=== PATIENT | female | born 1950 | race Caucasian/White ===

== ENCOUNTER 2021-08-28 14:11 | Emergency (ER) | payer MEDICARE ==
[~2021-08-28] VITALS: Ht 167.6 cm; Wt 80.9 kg
[2021-08-28 14:24] VITALS: TEMP 98.3
[2021-08-28 15:04] LABS: BASO % 0.6 % (0.0-2.0); EOS # 0.3 K/mm3 (0.0-0.7); GRAN # 3.6 K/mm3 (1.4-6.5); GRAN % 56.1 % (42.2-75.2); HEMATOCRIT 38.9 % (37.0-47.0); HEMOGLOBIN 13.3 g/dl (12.5-16.0); LYMPH # 1.7 K/mm3 (1.2-3.4); LYMPH % 26.9 % (20.0-51.0); MEAN CELL VOLUME 91 fl (80.0-100.0); MEAN CORPUSCULAR HEMOGLOBIN 31 pg (27-31); MEAN CORPUSCULAR HGB CONC 34 g/dl (33.0-37.0); MEAN PLATELET VOLUME 9.6 fl (7.4-10.4); MONO # 0.7 K/mm3 (0.1-0.6); MONO % 11.1 % (1.7-9.3); PLATELET COUNT 296 K/mm3 (130-400); REDCELL DISTRIBUTION WIDTH-CV 13.5 % (11.5-14.5)
[2021-08-28 15:14] LABS: ALBUMIN 3.7 gm/dL (3.4-4.8); BILIRUBIN,TOTAL 0.1 mg/dL (0.2-1.2); C-REACTIVE PROTEIN 0.36 mg/dL (0.00-0.50); CALCIUM 9.2 mg/dL (8.4-10.2); CREATININE, serum 1.2 mg/dL (0.57-1.11); POTASSIUM 4.1 mmol/L (3.5-4.5); TOTAL PROTEIN 7.9 gm/dL (6.2-8.1)
[2021-08-28 15:33] LABS: TROPONIN-I 0.012 ng/mL (0.00-0.033); TSH w REFLEX 0.951 uIU/mL (0.350-4.940)
[2021-08-28] MEDS ORDERED: PACERONE400 MG PO ×3 (18:15→18:36)
[2021-08-28] MEDS ORDERED: ELIQUIS 5MG PO ×3 (18:15→18:36)
[2021-08-28 18:37] VITALS: BP 130/82; PULSE 128
== END 2021-08-28 18:37 | disposition home or self-care (01) ==
LOC: COL.ER 14:11 → EDBD 14:17 → COL.ER 18:37
PROVIDERS: Nurse Practitioner
DX: R00.2 Palpitations (principal); I48.91 Unspecified atrial fibrillation; F17.200 Nicotine dependence, unspecified, uncomplicated; Z79.01 Long term (current) use of anticoagulants

== ENCOUNTER 2022-06-29 11:14 | Inpatient (IN) | payer MEDICARE ==
[~2022-06-29] VITALS: Ht 167.6 cm; Wt 87.2 kg
[~2022-06-29 11:14] MED LIST: ALEVE 220MG220 MG PO; ASPIRIN 81M81 MG/TA2 PO; CARDIZEM CD 12120 MG PO; CARDIZEM SR 60M60 MG PO; DITROPAN XL 5MG5 M1 PO; ELIQUIS 5MG PO; GLUCOPHAGE500 MG/TAB PO; HYDRODIURIL50 MG PO; KLOR-CON20 MEQ PO; PACERONE400 MG PO; TAMBOCOR 1100 MG/TAB PO; TYLENOL 500MG500 MG PO; ZESTRIL 5MG5 MG PO; ZOCOR 10MG10 MG PO
[2022-06-29] MEDS ORDERED: ROXICODONE 55 MG/TAB PO (12:44)
[2022-06-29] MEDS ORDERED: MAG-OX 400400 MG/TAB PO (12:45)
[2022-06-29] MEDS ORDERED: PROTONIX 40MG T40 MG PO (12:46)
[2022-06-29] MEDS ORDERED: BLUE-EMU LIDOC1 EACH TP (12:46)
--- NOTE | 2022-06-29 14:27 | NUR ---
Pt. arrived to the floor via wheelchair. Pt. is A&OX3, assessment complete. INT to lt. forearm and rt. ac patent. Pt. denies pain or other needs, call light within reach.
[2022-06-29] MEDS ORDERED: GLUCOPHAGE500 MG/TAB PO (15:26)
[2022-06-29] MEDS ORDERED: HYDRODIURIL50 MG PO (15:27)
[2022-06-29] MEDS ORDERED: ELIQUIS 5MG PO (15:27)
[2022-06-29 17:40] VITALS: BP 135/57; PULSE 71; TEMP 98
--- NOTE | 2022-06-29 19:30 | NUR ---
RECEIVED CHANGE OF SHIFT REPORT FROM DAY SHIFT RN.
[2022-06-30 05:15] VITALS: BP 142/48; PULSE 70; TEMP 98.1
--- NOTE | 2022-06-30 06:39 | NUR ---
BEDSIDE REPORT DONE ORDER WITH NIGHT NURSE RONNI
--- NOTE | 2022-06-30 07:05 | NUR ---
CHANGE OF SHIFT REPORT GIVEN TO DAY SHIFT RNNURIA.
--- NOTE | 2022-06-30 09:08 | NUR ---
ASSESSMENT DONE ORDER. PATIENT ALERT AND ORIENTED X 4. LUNG SOUND COURSE IN ALL LOBES. NO COUGH NOTED. ABD IN ALL 4 QUAD. PATIENT ABLE TO GET UP WITH ASSISTANCE. USE WALKER AND GAIT BELT
--- NOTE | 2022-06-30 15:49 | NUR ---
Has lack of transportation kept you from medical appts, meetings, work, or from getting things needed for daily living? NO How often do you feel lonely or isolated from those around you? NEVER Over the past 5 days, how much of the time has pain made it hard for you to sleep? RARELY/NOT AT ALL Over the past 5 days, how often have you limited your participation in therapy due to pain? RARELY/NOT AT ALL Over the past 5 days, how often have you limited your day-to-day activities because of pain? OCCASIONALLY Have you had 2 or more falls in the past year or any fall with an injury? YES Did you have major surgery during the 100 days prior to admission? NO
--- NOTE | 2022-06-30 16:10 | NUR ---
Wool Supplier met with patient to complete initial intake as patient is new to [facility]. Patient lives alone in [place], [place] and sees Dr. Malave for primary care. Patient obtains medications from [facility] in [place] and does not have any DME at this time. Patient recently completed DPOA-HC designating her daughter, Jackelyn (ph#[phone]). SW provided patient a copy of the team conference notes. ASHLEIGH reviewed recommendation for Home Health and provided Medicare.gov list of HH agencies. SW also reviewed DME that is recommended but not covered by insurance. SW is awaiting further DME recommendations. ASHLEIGH advised patient discharge date is set for 07/06/22 and she is agreeable to this. ASHLEIGH contacted patient's daughter, Jackelyn to provide update. Jackelyn advised she plans to visit [facility]. Jackelyn does have concerns about patient smoking in her home and has talked with patient about this.
--- NOTE | 2022-06-30 16:42 | NUR ---
FOUND A NICOTINE PATCH ON LEFT SHOULDER BLADED. PATIENT STATED THAT SHE IS REQUESTION A NOTHER ONE SINCE SHE FEEL LIKE SMOKING. INFORM DOCTOR MITA REGARDING IT AND HE PLACE AN ORDER FOR A PATCH DAILY.I ALSO INFORM ABOUT HER DIET. EXPLAIN THAT PATIENT HAD RENAL DIET FOR A FEW DAYS THEN CHANGE TO CARB DIET DUE TO HER DIABETES. DR FAN CHANGE ORDER TO CARB DIET FOR PATIENT.
[2022-06-30 16:48] VITALS: BP 139/43; PULSE 74; TEMP 98.6
--- NOTE | 2022-06-30 19:00 | NUR ---
RECEIVED CHANGE OF SHIFT REPORT FROM DAY SHIFT RN.
[2022-07-01 06:26] VITALS: BP 128/41; PULSE 72; TEMP 98.6
--- NOTE | 2022-07-01 06:48 | NUR ---
BEDSIDE REPORT DONE ORDER WITH NIGHT NURSE RONNI.
[2022-07-01 06:55] LABS: BASO % 0.4 % (0.0-2.0); EOS # 0.2 K/mm3 (0.0-0.7); EOS % 2.7 % (0.0-4.0); GRAN # 6.7 K/mm3 (1.4-6.5); GRAN % 82.4 % (42.2-75.2); LYMPH # 0.7 K/mm3 (1.2-3.4); LYMPH % 8.8 % (20.0-51.0); MEAN CELL VOLUME 83 fl (80.0-100.0); MEAN CORPUSCULAR HGB CONC 30 g/dl (33.0-37.0); MEAN PLATELET VOLUME 8.8 fl (7.4-10.4); MONO # 0.4 K/mm3 (0.1-0.6); MONO % 5.2 % (1.7-9.3); PLATELET COUNT 282 K/mm3 (130-400); RED BLOOD COUNT 3.41 M/mm3 (4.10-5.30); REDCELL DISTRIBUTION WIDTH-CV 18.6 % (11.5-14.5)
[2022-07-01 07:02] LABS: HEMATOCRIT 28.2 % (37.0-47.0); HEMOGLOBIN 8.5 g/dl (12.5-16.0); MEAN CORPUSCULAR HEMOGLOBIN 25 pg (27-31)
[2022-07-01 07:11] LABS: CALCIUM 8.2 mg/dL (8.4-10.2); CREATININE, serum 1.21 mg/dL (0.57-1.11); POTASSIUM 4.1 mmol/L (3.5-4.5)
--- NOTE | 2022-07-01 07:15 | NUR ---
CHANGE OF SHIFT REPORT GIVEN TO DAY SHIFT RNNURIA.
--- NOTE | 2022-07-01 08:43 | NUR ---
ASSESSMENT DONE ORDER. PATIENT ALERT AND ORIENTED. ABLE TO RETENTION SPECIALIST EQUALLY.PATIENT ABLE TO STAND WITH WALKER. STILL HAVE PAIN AND LAST DOSE OF OXY WAS THIS MORNING. I ALSO GAVE COLACE AND MIRALEX.
--- NOTE | 2022-07-01 12:31 | NUR ---
Initial visit; Patient thanked Entertainment Centre Manager for looking in on her and offering God's blessings and keeping her in Entertainment Centre Manager's prayers.
[2022-07-01 17:13] VITALS: BP 150/47; PULSE 85; TEMP 98.4
--- NOTE | 2022-07-01 18:24 | NUR ---
suppository was given since patient had not had a bowel movement for a while. she also had miralex and senna
--- NOTE | 2022-07-01 19:35 | NUR ---
PT SITTING IN RECLINER. CGA TO BR WITH WALKER. PT ALITTLE DYSPNEIC WITH ACTIVITY. PT REPORTS ONLY PASSING SMALL AMTS OF FLATUS. ABD SOFT. BS HYPOACTIVE. VOIDED. SMALL HARD STOOL WITH PARTICLES OF SUPPOSITORY. CHANGED INTO NIGHT CLOTHES WITH MIN ASSIST W/ PANTS. TO BED. RT HERE TO CHECK O2 SAT- 95% RA. O2 STARTED FOR THE NIGHT AT 2L N/C. SEE MAR FOR PAIN MED GIVEN FOR LT FLANK PAIN. SCD'S ON AT THIS TIME. CALL LIGHT IN REACH. BED ALARM SET.
[2022-07-02 05:15] VITALS: BP 148/51; PULSE 79; TEMP 97.9
--- NOTE | 2022-07-02 08:29 | NUR ---
Pt doing well this morning. Some pain complaints in her side. Tolerated breakfast with no issues.
--- NOTE | 2022-07-02 15:44 | NUR ---
Ware Tester met with patient to follow up on discharge planning. Patient is still reviewing home health list and has not made a decision at this time. Patient is agreeable to have four wheeled walker ordered at [facility]. SW faxed referral and order to [facility].
[2022-07-02 17:55] VITALS: BP 152/55; PULSE 84; TEMP 99.2
--- NOTE | 2022-07-02 20:00 | NUR ---
PATIENT IS A&O. VSS. C/O GENERALIZED ACHES AND PAINS IN BACK/LEGS/KNEES. LIDO PATCH INPLACE AND GAVE PRN TYLENOL, SEE JUL. PATIENT WAS GIVEN REYMUNDO BY DAY SHIFT AND IS NOT YET DUE. PATIENT ASSISTED TO BATHROOM TO VOID. GAIT A LITTLE UNSTEADY AT FIRST WITH GETTING UP BUT SEEMED MORE STEADY WITH WALKER ONCE UP. PT/OT CONSULTED. SCD'S CURRENTLY OFF. HEAD TO TOE ASSESSMENT COMPLETE. HS MEDS GIVEN. PATIENT SITTING UP IN BEDSIDE CHAIR TILL SHE IS READY FOR BED. CALL LIGHT IN REACH. CHAIR ALARM ON.
[2022-07-03 04:57] VITALS: BP 148/45; PULSE 81; TEMP 98.1
--- NOTE | 2022-07-03 08:00 | NUR ---
Pt doing well this morning, reports that she had a good night. Pt is sitting up in the chair eating her breakfast. Pt reports having some pain to her back and left chest/side. PRN pain medication given. Pt hoping for a shower with OT this morning. Pt does have some edema in her feet/lower legs. Elevated legs in recliner. Discussed plan of care and therapy schedule with her. No other needs, will continue to monitor
--- NOTE | 2022-07-03 11:39 | NUR ---
Notified Dr Fry of pt BLE edema
--- NOTE | 2022-07-03 14:00 | NUR ---
Pt doing well. Has family in the room visiting at this time. Assisted pt to the restroom, stand by assist with walker. PRN pain medication given, no other needs
[2022-07-03 17:04] VITALS: BP 153/54; PULSE 84; TEMP 98.3
--- NOTE | 2022-07-03 23:07 | NUR ---
PATIENT IS AOX4 AND PLEASANT TO SPEAK WITH. SHE WAS ASSISTED TO THE BATHROOM BY THIS NURSE AND DID WELL SBA WITH FWW. SHE APPEARS WITH BLE 5/10 PAIN AND 2+ EDEMA. AFTER BEING ASSISTED TO HER CHAIR, WE WAS EDUCATED TO ELEVATE HER BLE IN ORDER DECREASE THE EDEMA. SHE ALSO STATES THAT SHE HAS NOT HAD A BM IN NEARLY ONE WEEK. GIVEN SENNA ORDERED, WILL REASSESS PER HER REQUEST IN THE MORNING. SHE WAS EDUCATED THAT BEING ON OXYCODONE MAKES HER PRONE TO BECOMING CONSTIPATED, BOWELS ARE HYPOACTIVE AND SHE HAS NOT BEEN PASSING FLATUS THIS EVENING. SHE DECIDED WE SHOULD HOLD OFF ON THE OXYCODONE UNLESS IT WAS ABSOLUTELY NEEDED AFTER BEING EDUCATED. NIGHTLY MEDICATIONS GIVEN. CHAIR ALARM ON. CALL LIGHT IN REACH.
--- NOTE | 2022-07-04 04:47 | NUR ---
PATIENT HAS SLEPT OFF AND ON THROUGHOUT THE NIGHT. SHE GOT UP TO HER CHAIR AROUND 2AM AFTER SLEEPING FOR A COUPLE OF HOURS AND CURRENTLY RESIDES IN BED ASLEEP. SCD'S ARE ON, BLE ARE ELEVATED. CALL LIGHT IN REACH. BED IN LOWEST POSITION.
[2022-07-04 05:49] VITALS: BP 157/51; PULSE 83; TEMP 97.4
--- NOTE | 2022-07-04 08:00 | NUR ---
PATIENT IS A&O. VSS. C/O GENERALIZED ACHES AND PAINS ON LEFT FLANK, LIDO PATCHES APPLIED. PATIENT SITTING UP IN BEDSIDE CHAIR WITH BREAKFAST. PATIENT REFUSING PAIN MEDS AT THIS TIME. AM MEDS GIVEN, SEE JUL. PT/OT CONSULTED. SCD'S CURRENTLY OFF. HEAD TO TOE ASSESSMENT COMPLETE. CALL LIGHT IN REACH. CHAIR ALARM ON.
--- NOTE | 2022-07-04 12:25 | NUR ---
Grade Checker rounds: Patient was sitting in recliner. We talked about her grandchildren; one of them rocío a picture that is hanging on the closet door. Patient talked about how much she enjoys being able to nap while here. Patient became winded while we spoke so the conversation was shorter than anticipated. Grade Checker prayed for Patient.
[2022-07-04 17:47] VITALS: BP 152/57; PULSE 85; TEMP 98.2
--- NOTE | 2022-07-04 19:00 | NUR ---
RECEIVED CHANGE OF SHIFT REPORT FROM DAY SHIFT RN. PATIENT UP IN CHAIR DURING REPORT. DENIES ANY NEEDS, EXIT ALARM ON, CALL LIGHT WITHIN REACH.
[2022-07-05 04:53] VITALS: BP 171/62; PULSE 76; TEMP 97.6
--- NOTE | 2022-07-05 07:06 | NUR ---
CHANGE OF SHIFT REPORT GIVEN TO DAY SHIFT RNLA.
--- NOTE | 2022-07-05 08:00 | NUR ---
PATIENT IS A&O. VSS. C/O GENERALIZED ACHES AND PAINS ON LEFT FLANK FROM FALL, LIDO PATCHES APPLIED. PATIENT REPORTS SCHEDULED TYLENOL HAS BEEN SUFFICIENT FOR HER PAIN MANAGEMENT. SINCE DECREASING USE OF NARCOTIC PATIENT HAS NOTICED INCREASED BOWL FUNCTION AND WAS ABLE TO HAVE A LARGE, SOFT-FORMED STOOL THIS AM. PATIENT NOW SITTING UP IN BEDSIDE CHAIR WITH BREAKFAST. AM MEDS GIVEN, SEE JUL. PT/OT CONSULTED. SCD'S CURRENTLY OFF. HEAD TO TOE ASSESSMENT COMPLETE. CALL LIGHT IN REACH. PT NOW AT BEDSIDE TO WORK WITH PATIENT, SEE PT NOTES.
[2022-07-05 14:22] LABS: BASO % 0.4 % (0.0-2.0); EOS # 0.2 K/mm3 (0.0-0.7); EOS % 2.4 % (0.0-4.0); GRAN # 5.4 K/mm3 (1.4-6.5); GRAN % 73.5 % (42.2-75.2); LYMPH # 1.2 K/mm3 (1.2-3.4); LYMPH % 16.2 % (20.0-51.0); MEAN CELL VOLUME 82 fl (80.0-100.0); MEAN CORPUSCULAR HGB CONC 30 g/dl (33.0-37.0); MEAN PLATELET VOLUME 8.7 fl (7.4-10.4); MONO # 0.5 K/mm3 (0.1-0.6); PLATELET COUNT 393 K/mm3 (130-400); RED BLOOD COUNT 3.71 M/mm3 (4.10-5.30); REDCELL DISTRIBUTION WIDTH-CV 19.2 % (11.5-14.5)
[2022-07-05 14:24] LABS: HEMATOCRIT 30.4 % (37.0-47.0); HEMOGLOBIN 9.1 g/dl (12.5-16.0); MEAN CORPUSCULAR HEMOGLOBIN 25 pg (27-31)
[2022-07-05 14:43] LABS: CALCIUM 9.5 mg/dL (8.4-10.2); CREATININE, serum 1.14 mg/dL (0.57-1.11); POTASSIUM 4.2 mmol/L (3.5-4.5)
--- NOTE | 2022-07-05 15:42 | NUR ---
Associate Chief Nurse met with patient's daughter, Jackelyn to review discharge planning needs while patient is in OT. Jackelyn advised they want to use [facility]. SW informed Jackelyn that patient's four wheeled walker will be delivered to patient's room tomorrow prior to discharge. SW followed up with patient to present and review IM form. Patient verbalized understanding and provided signature. SW placed form in patient's chart and provided copy to patient. ASHLEIGH contacted Alesia at [facility] and faxed referral.
[2022-07-05 16:53] VITALS: BP 173/70; PULSE 84; TEMP 98.6
--- NOTE | 2022-07-05 19:14 | NUR ---
RECEIVED CHANGE OF SHIFT REPORT FROM DAY SHIFT RN. PATIENT UP IN CHAIR DURING REPORT, DENIES ANY NEEDS/CHEST PAIN/SOA/NAUSEA AT TIME OF REPORT. ON ROOM AIR. EXIT ALARM ON, CALL LIGHT WITHIN REACH.
--- NOTE | 2022-07-06 00:39 | NUR ---
PATIENT RESTING UP IN CHAIR CURRENTLY, FEELS SHE IS UNABLE TO SLEEP IN BED. DID NOT HAVE NEED FOR OXYGEN PER NC TODAY, REPORTS STILL GET SOA WITH EXERTION BUT FELT NO NEED FOR OXYGEN SUPPORT WITH SOA. HAD BMS TODAY WITH NO PROBLEMS. PAIN MANAGED WITH SCHEDULED TYLENOL ONLY. EXIT ALARM ON WHILE UP IN CHAIR WITH CALL LIGHT IN REACH.
[2022-07-06 05:49] VITALS: BP 178/73; PULSE 95; TEMP 97.8
--- NOTE | 2022-07-06 05:55 | NUR ---
PATIENT UP TO BATHROOM, HAD BM, BECAME SOA, STARTED TO C/O MID STERNAL CHEST PAIN, SKIN DRY, COLOR NORMAL, OXYGEN APPLIED PER NC AT 2LPM. VS TAKEN. PATIENT STATED CHEST PAIN SUBSIDED "LITTLE AFTER OXYGEN WAS PUT ON". INFORMED PROVIDER OF PATIENT C/O CHEST PAIN, ORDERS ENTERED, RT INFORMED OF EKG ORDER ENTERED BY PROVIDER. PATIENT
--- NOTE | 2022-07-06 06:59 | NUR ---
CHANGE OF SHFIT REPORT GIVEN TO DAY SHIFT RNLA.
--- NOTE | 2022-07-06 07:26 | NUR ---
REPORTED CRITICAL TROPONIN TO PRIMARY NURSE JENN.
--- NOTE | 2022-07-06 07:30 | NUR ---
CRITICAL TROP OF 0.087 AND DD OF 563 REPORTED TO HOSPITALIST WELL PATIENT STATUS UPDATE. FACE AND FILL PACKER REPORTS PATIENT SUDDENTLY C/O STERNAL CHEST PAIN SHORTLY BEFORE SHIFT CHANGE AND LABS WERE DRAWN AT THAT TIME, PATIENT PLACED ON 02 @ 2L TO KEEP SATS ABOVE 90%, AND EKG TAKEN. NOTED LABOR BREATHING AT REST. CRITICAL LABS & EKG RESULTS NOW REPORTED BY DAY SHIFT AND REQUESTED ORDERS FOR TELE-INPLACE. STARTED 20 GAUGE IV INTO RIGHT HAND. PATIENT PLACED IN HOSPITAL GOWN. SEE ORDERS FOR ECHO, CT WITH PE PROTOCOL, AND CARDIOLOGY CONSULT-PAGED . PATIENT MADE NPO TILL CARDIOLOGY SEE'S HERE. CALLED KITCHEN AND CANCELED ROOM TRAY. NPO SIGN ON DOOR.
[2022-07-06 07:54] VITALS: BP 184/82; PULSE 88; TEMP 98.2
[2022-07-06 08:04] LABS: CALCIUM 9.3 mg/dL (8.4-10.2); CREATININE, serum 0.94 mg/dL (0.57-1.11); POTASSIUM 4.4 mmol/L (3.5-4.5)
--- NOTE | 2022-07-06 08:35 | NUR ---
CARDIOLOGY CALLED BACK AND GIVEN PATIENT STATUS UPDATE AND AWARE OF CONSULT.
--- NOTE | 2022-07-06 08:40 | NUR ---
VASCULAR AT BEDSIDE TO OBTAIN ECHO.
--- NOTE | 2022-07-06 09:10 | NUR ---
HOSPITALIST CLARIFIED WHICH AM MEDS TO GIVE WITH A FEW SIPS. HOSPITALIST AWARE OF B/P IN THE 180'S SYSTOLIC.
[2022-07-06] MEDS ORDERED: NICODERM C21 MG/PATC TD (09:18)
--- NOTE | 2022-07-06 09:20 | NUR ---
PATIENT'S DAUGHTER AT BEDSIDE AND GIVEN PATIENT STATUS UPDATE. JOSELIN WITH [facility] ALSO AT BEDSIDE. PATIENT DENIES CHEST PAIN AT THIS TIME. NOTED LABOR BREATHING AT REST. 02 @ 2L PER NC WITH SATS IN MID 90'S. PUTING IN TRANSFER ORDERS TO SURGICAL UNIT.
--- NOTE | 2022-07-06 10:00 | NUR ---
CARDIOLOGY AT BEDSIDE
--- NOTE | 2022-07-06 10:07 | NUR ---
Offset Label Rewinder notified that patient is discharging to [facility] due to cardiac concerns. ASHLEIGH contacted John at [facility] with update. ASHLEIGH also contacted Alesia at [facility] to provide update. Alesia will continue to follow patient on acute as patient will likely still need Home Health at time of discharge on acute.
--- NOTE | 2022-07-06 10:13 | NUR ---
PATIENT GOING DOWN TO RADIOLOGY FOR CT SCAN.
--- NOTE | 2022-07-06 10:48 | NUR ---
PATIENT BACK IN ROOM FROM CT SCAN. PATIENT DISCHARGING FROM [facility] AND WILL GET RE-ADMITTED ON SURGICAL. SEE ORDERS.
[2022-07-06] MEDS ORDERED: ELIQUIS 5MG PO (11:11)
[2022-07-06] MEDS ORDERED: ASPIRIN 81M81 MG/TA2 PO (11:14)
[2022-07-09] MEDS ORDERED: RT Albuterol HFA MDI IH (12:25)
[2022-07-09] MEDS ORDERED: INCRUSE EL62.5 MCG/A IH (12:25)
[2022-07-09] MEDS ORDERED: LIPITOR 40MG TA40 MG PO (12:26)
[2022-07-09] MEDS ORDERED: IMDUR 30MG30 MG/TAB PO (12:26)
[2022-07-09] MEDS ORDERED: NITROSTAT0.4 MG/TAB SL (12:27)
[2022-07-09] MEDS ORDERED: TOPROL XL 25MG25 MG PO (12:27)
== END 2022-07-06 10:48 | disposition short-term general hospital (02) | DRG 947 ==
PROVIDERS: Physician Assistant; ADMIT Physical Medicine & Rehabilitation Sports Medicine
DX: R53.81 Other malaise (principal); J96.01 Acute respiratory failure with hypoxia; I48.92 Unspecified atrial flutter; D64.89 Other specified anemias; R07.81 Pleurodynia; R29.6 Repeated falls; R26.89 Other abnormalities of gait and mobility; M54.59 Other low back pain; M54.16 Radiculopathy, lumbar region; K25.7 Chronic gastric ulcer without hemorrhage or perforation; N28.9 Disorder of kidney and ureter, unspecified; E83.52 Hypercalcemia; I48.91 Unspecified atrial fibrillation; E11.9 Type 2 diabetes mellitus without complications; I10 Essential (primary) hypertension; Z79.84 Long term (current) use of oral hypoglycemic drugs; Z73.6 Limitation of activities due to disability; Z79.899 Other long term (current) drug therapy; Z79.891 Long term (current) use of opiate analgesic; Z79.01 Long term (current) use of anticoagulants; Z95.818 Presence of other cardiac implants and grafts; K59.00 Constipation, unspecified; R77.8 Other specified abnormalities of plasma proteins; R79.1 Abnormal coagulation profile; M48.54XS Collapsed vertebra, not elsewhere classified, thoracic region, sequela of fracture
CPT/HCPCS: Q9967

== ENCOUNTER → 2023-11-29 | Day surgery (SDC) | payer MEDICARE ==
[~2023-11-29] VITALS: Ht 165.1 cm; Wt 87.4 kg
[~2023-11-29] MED LIST changes: +BLUE-EMU LIDOC1 EACH TP; +CARDIZEM120 MG PO; +EZFE 200200 MG PO; +FIRST-MOUTHWASH1 KIT PO; +Glycopyrrolate 0.2 MG/ML 1 ML VIAL ONE; +HYDROmorphone 1 MG/1 ML SYRINGE [PACU/SDC ONLY] IV PRN; +IMDUR 30MG30 MG/TAB PO; +INCRUSE EL62.5 MCG/A IH; +Ibuprofen 600 MG TAB PO PRN; +LIPITOR 40MG TA40 MG PO; +LR 1,000 ML IV SCH; +Lidocaine PF 2% (20 MG/ML) 5 ML VIAL ONE; +MAG-OX 400400 MG/TAB PO; +Morphine 4 MG/ML VIAL IV PRN; +NICODERM C21 MG/PATC TD; +NITROSTAT0.4 MG/TAB SL; +NORCO 325 MG-51 TAB PO; +NS 10 ML IV ONE; +ONE-A-DAY ESSE1 EACH PO; +Ondansetron 4 MG/2 ML VIAL IV PRN; +Ondansetron 4 MG/2 ML VIAL ONE; +PLETAL50 MG PO; +PROAIR HFA0.09 MG/AC IH; +PROTONIX 40MG T40 MG PO; +ROXICODONE 55 MG/TAB PO; +RT Albuterol HFA MDI IH; +RT SPIRIVA18 MCG IH; +SENOKOT S 50 MG1 TAB PO; +SPIRIVA RE2.5 MCG/Ac IH; +TIKOSYN0.25 MG PO; +TOPROL XL 25MG25 MG PO; +TOPROL XL 50MG50 MG PO; +TOPROL XL100 MG PO; +Topical Skin Adhesive 1 EACH (1 ML) TOP ONE; +ULTRAM 50MG TAB50 MG PO; +ZOFRAN8 MG PO; +dexAMETHasone 10 MG/ML VIAL ONE; +droPERidol 2.5 MG/ML 2 ML VIAL IV PRN; +fentaNYL 50 MCG/ML 1 ML SYRINGE/VIAL [PACU/SDC ONLY] IV PRN; +fentaNYL 50 MCG/ML 2 ML VIAL ONE; +hydrALAZINE 20 MG/ML 1 ML VIAL IV PRN
[2023-11-29 14:21] VITALS: BP 118/58; PULSE 70; TEMP 98.5
[2023-11-29 16:13] VITALS: BP 101/41; PULSE 76; TEMP 96.6
[2023-11-29 16:30] VITALS: BP 149/52; PULSE 78
--- NOTE | 2023-11-29 17:15 | NUR ---
1613- PT RETURNS FROM OR VIA CART TO [facility]. MONITORS ON AND ALARMS SET. CALL LIGHT WITHIN REACH. REPORT RECEIVED FROM GAIL SILVESTRE. PT ALERT AND ORIENTED. PT REQUESTS FOOD AND DRINK. PT DENIES ANY PAIN OR NAUSEA. 1630- PT TAKING FOOD AND DRINK WELL. NO COMPLICATIONS NOTED. 1655- DISCHARGE INSTRUCTIONS GIVEN TO PT. ALL QUESTIONS ANSWERED. 1710- PT TRANSFERRED OUT OF THE HOSPITAL VIA WHEELCHAIR TO PRIVATE VEHICLE DRIVEN BY FRIEND.
== END ==
LOC: SDCO 12:09
DX: T82.524A Displacement of infusion catheter, initial encounter (principal); C34.2 Malignant neoplasm of middle lobe, bronchus or lung; F17.210 Nicotine dependence, cigarettes, uncomplicated; Z79.01 Long term (current) use of anticoagulants; Z79.82 Long term (current) use of aspirin; Z95.5 Presence of coronary angioplasty implant and graft; Y83.1 Surgical operation with implant of artificial internal device as the cause of abnormal reaction of the patient, or of later complication, without mention of misadventure at the time of the procedure
CPT/HCPCS: C1788; J0690; J1100; J1644; J2405; J2704; J3010; J7120